=== PATIENT | female | born 1975 | race Caucasian/White ===

== ENCOUNTER 2023-01-03 08:20 | Outpatient (CLI) | payer BC, SELFPAY ==
--- NOTE | 2023-01-03 08:45 | CRLHL7_ITS ---
For Patients: As a result of the Century Cures Act, medical imaging exams and procedure reports are released immediately into your electronic medical record. You may view this report before your referring provider. If you have questions, please contact your health care provider. BILATERAL SCREENING MAMMOGRAM WITH COMPUTER-AIDED DETECTION AND TOMOSYNTHESIS TECHNIQUE: CC and MLO views were obtained. These mammographic images have been obtained using full-field digital technique. These mammographic images were interpreted with the benefit of computer-aided detection. Breast tomosynthesis was used in this interpretation. COMPARISON FILM: 05/10/16, 06/18/14, 12/15/10. FINDINGS: The breasts are heterogeneously dense, which may obscure small masses. IMPRESSION: There is no radiographic evidence for malignancy. ASSESSMENT: BI-RADS Category 1: Negative RECOMMENDATION: Routine screening mammogram in 1 year. A lay language report of this examination will be provided to the patient. MIC SPENCER M.D. Diagnostic Radiologist [email or web address] Transcribed: 01/03/2023, 6:[address]/Dictated by: Mic Spencer MD @ 01/03/2023 9:29:[address]/Dictated by: Mic Spencer MD @ 01/03/2023 9:29:00 AM (Electronically Signed)
== END 2023-01-03 08:21 | disposition home or self-care (01) ==
LOC: MAMMO 08:26
PROVIDERS: PCP Family Medicine; Visit Provider Family Medicine
DX: Z12.31 Encounter for screening mammogram for malignant neoplasm of breast (principal); R92.2 Inconclusive mammogram
CPT/HCPCS: 77063; 77067

== ENCOUNTER 2024-08-21 18:15 | Emergency (ER) | payer OTHER, SELFPAY ==
[2024-08-21] VITALS (13 sets, daily range): BP systolic 126–173; BP diastolic 85–102; PULSE 67–96; RESP 4–26; TEMP 37.2; O2SAT 97–99; BMI 25.4
--- OUTSIDE RECORDS SUMMARY | 2024-08-21 18:17 | XMS_ITS | Clinical Summary ---
Author Organization [facility] Address [address] [place] [id number] Care Team Providers Care Pigment Pumper Name Role Phone Pcp, No Primary Care Provider Unavailabl e Medications No known medications Social History Tobacco Use Types Packs/Day Years Used Date Smoking Tobacco: Never Alcohol Use Standard Drinks/Week Comments Not Asked 0 (1 standard drink = 0.6 oz pur e alcohol) Comments Unknown Sex and Gender Information Value Date Recorded Sex Assigned at Not on file Legal Sex Female 6:25 AM RESERVOIR CARETAKER Gender Identity Not on file Sexual Orientation Not on file Obstetrics History Last Filed Vital Signs Vital Sign Reading Time Taken Comments Blood Pressure 131/76 04/21/2010 3:25 PM RESERVOIR CARETAKER Pulse 81 04/21/2010 3:25 PM RESERVOIR CARETAKER Temperature - - Respiratory Rate - - Oxygen Saturation - - Inhaled Oxygen Concentration - - Weight 81.2 kg (179 lb 1.6 oz) 04/21/2010 3:25 P M RESERVOIR CARETAKER Height - - Body Mass Index - - Plan of Treatment Health Maintenance Due Date Last Done Comments Tdap 1984 Depression screening for age 12+ 1985 HIV for age 15-65 1988 BMI (ht and wt on same day) for age 18+ 11/30/1991 Hepatitis C screening for age 18-79 11/30/1991 Tetanus booster 1993 Pap test for age 21-65 1994 Colonoscopy through age 75 2018 Lipids for age 45-75 2018 Mammogram for age 45-75 2018 Pneumococcal series for age 50+ (1 of 1 - PCV) 024 Zoster (shingles) series for age 50+ (1 of 2) 11/30/19 24 COVID-19 vaccine series (2023- season) 4 Influenza Vaccine (Season Ended) 2025 Care Teams Pigment Pumper Relationship Specialty Start Date End Date Pcp, No . PCP - General 04/06/10
--- NOTE | 2024-08-21 18:35 | ED.GENADULT ---
HPI - General Adult General Time Seen by Provider: 18:35 Date Seen: 08/21/24 Chief complaint: Chest Pain Stated complaint: tightness in chest, difficulty breathing, dizzy Time Seen by Provider: 08/21/24 18:24 Source: patient, RN notes reviewed and old records reviewed Mode of arrival: ambulatory Limitations: no limitations History of Present Illness HPI narrative: 48-year-old female who presents today with multiple complaints. Patient notes 4-5 days of left-sided chest pain going into the left arm, she says this is constant, also some lightheadedness. No nausea vomiting, does not seem to be worse with activity. Also left-sided head pain and neck pain, and notes for episodes of left-sided facial droop accompanied by left arm weakness over the last 3 months most recently 2 weeks ago, each lasting about 5 minutes at a time. Related Data Previous Rx's ?Medication ?Instructions ?Recorded aspirin 81 mg tablet,delayed 81 mg PO DAILY #30 tabs 08/21/24 release atorvastatin 10 mg tablet 10 mg PO DAILY #30 tabs 08/21/24 Allergies Allergy/AdvReac Type Severity Reaction Status Date / Time coconut Allergy Intermediate Swelling Verified 08/21/24 19:26 of the Eye [facility] Social History Non-prescribed substance use: denies use Exam Narrative: Exam Narrative: General: Well-developed and well-nourished, no acute distress Head: Atraumatic and normocephalic Eyes: Pupils are equal reactive, extraocular motions intact, conjunctiva clear ENT: External nose and ears are normal, posterior pharynx without erythema or exudate Neck: No midline cervical tenderness, full spontaneous range of motion the neck, trachea midline, no adenopathy Heart: Regular rate and rhythm no murmurs or thrills Lungs: Clear to auscultation bilaterally without wheezes or crackles Abdomen: Soft, nontender, nondistended with active bowel sounds Musculoskeletal: No tenderness, deformity, or edema Neurologic: Awake, alert, and oriented x3, no gross focal neurologic deficits, cranial nerves intact as tested Psych: Mood and affect are appropriate Skin: No rashes Const: Vital Signs, click to edit/add: Vital Signs - 24 hr 08/21/24 18:33 08/21/24 19:04 08/21/24 19:05 Temperature 98.9 F Pulse Rate 72 77 Pulse Rate [Pulse Oximeter] 96 Respiratory Rate 16 7 L 21 Blood Pressure 152/92 H Blood Pressure [Ri ght Upper Arm] 173/102 H Pulse Oximetry 98 99 99 Oxygen Delivery Me thod Room Air 08/21/24 19:22 08/21/24 19:37 08/21/24 19:41 Temperature Pulse Rate 75 77 Pulse Rate [Pulse Oximeter] Respiratory Rate 4 L 26 H 7 L Blood Pressure 141/87 H 141/91 H Blood Pressure [Ri ght Upper Arm] Pulse Oximetry 97 99 Oxygen Delivery Me thod 08/21/24 20:00 08/21/24 20:01 08/21/24 20:23 Temperature Pulse Rate 72 69 70 Pulse Rate [Pulse Oximeter] Respiratory Rate 16 12 17 Blood Pressure 130/90 H 143/85 H Blood Pressure [Ri ght Upper Arm] Pulse Oximetry 97 98 98 Oxygen Delivery Me thod 08/21/24 20:30 08/21/24 20:43 08/21/24 21:00 Temperature Pulse Rate 74 73 67 Pulse Rate [Pulse Oximeter] Respiratory Rate 12 19 16 Blood Pressure 146/99 H Blood Pressure [Ri ght Upper Arm] Pulse Oximetry 98 99 97 Oxygen Delivery Me thod 08/21/24 21:02 Temperature Pulse Rate 69 Pulse Rate [Pulse Oximeter] Respiratory Rate 14 Blood Pressure 126/87 Blood Pressure [Ri ght Upper Arm] Pulse Oximetry 98 Oxygen Delivery Me thod Course Course ED Course: Reviewed EHR for [facility], patient's only prior encounter what is in 2011 with Podiatry. I do note that she has an upcoming appointment in 1 week in the primary care clinic. Patient seen and examined, presents with multiple complaints today. Chest pain which is been going on for the last 45 days, radiates into left arm, constant, not associated with activity. On exam here, finally stable, no tenderness to palpation, lungs are clear. Troponin and EKG are ordered. Additionally patient notes several episodes of left facial droop and left arm weakness over the last couple of months in the last couple of minutes at a time. The last of these was 2 weeks ago. No focal neurologic deficits on exam today. CTA of the head neck ordered to evaluate for dissection, vascular occlusion or stenosis. Aspirin given in the department. Reevaluation(s) Time of Reevaluation #1: 19:08 Reevaluation #1: EKG middle interpreted by me performed at 7:02 p.m. demonstrates sinus rhythm rate 75, no acute ST elevations or depressions, normal intervals, normal axis, QTC 426, no prior for comparison. Time of Reevaluation #2: 20:18 Reevaluation #2: Labs independently interpreted by me with normal CBC, normal basic panel of the mild hypokalemia, normal magnesium, negative BNP, negative D-dimer, normal troponin. Reviewed radiology interpretation CTA of the head and neck, negative for acute findings. CT scan of the head is negative. Discussed findings and plan with patient. She should certainly have further evaluation for possible TIA, in the meantime will be started on statin, aspirin. Stress test ordered for further evaluation of her chest pain. Stable for discharge otherwise. Time of Reevaluation #3: 21:51 Reevaluation #3: Repeat troponin is negative. Patient recheck, she is stable for discharge we discussed disposition, admission versus discharge for outpatient follow-up, patient is stable for outpatient Vital Signs Vital signs: Initial Vital Signs Temperature 98.9 F 08/21/24 18:33 Temperature Source Temporal Artery Scan 08/21/24 18:33 Pulse Rate 96 08/21/24 18:33 Respiratory Rate 16 08/21/24 18:33 Blood Pressure 173/102 H 08/21/24 18:33 Blood Pressure Mean 125 H 08/21/24 18:33 Pulse Oximetry 98 08/21/24 18:33 Oxygen Delivery Method Room Air 08/21/24 18:33 Vital Signs Temperature 98.9 F 08/21/24 18:33 Pulse Rate 96 08/21/24 18:33 Respiratory Rate 16 08/21/24 18:33 Blood Pressure 173/102 H 08/21/24 18:33 Pulse Oximetry 98 08/21/24 18:33 Oxygen Delivery Method Room Air 08/21/24 18:33 Temperature 98.9 F 08/21/24 18:33 Pulse Rate 69 08/21/24 21:02 Respiratory Rate 14 08/21/24 21:02 Blood Pressure 126/87 08/21/24 21:02 Pulse Oximetry 98 08/21/24 21:02 Oxygen Delivery Method Room Air 08/21/24 18:33 Medications Administered Medications: Discontinued Medications Generic Name Dose Route Start Last Admin Trade Name Freq PRN Reason Stop Dose Admin Aspirin 324 mg 08/21/24 20:24 08/21/24 20:36 Aspirin 81 Mg Tab.Chew PO 08/21/24 20:25 324 mg ONCE ONE Administration Medical Decision Making Lab Data Labs: Lab Results 08/21/24 08/21/24 08/21/24 Range/Units 19:00 19:10 21:00 WBC 9.13 (4.50-11.00) K/uL RBC 4.72 (4.00-5.20) m/uL Hgb 13.9 (12.0-16.0) gm/dL Hct 40.4 (33.0-51.0) % MCV 86 (80-100) fL MCH 29 (26-34) pg MCHC 34 (32-36) gm/dL RDW Coeff of Jean Claude 11.8 (11.5-15.5) % Plt Count 253 (140-440) K/uL Neut % (Auto) 64.4 (42.0-72.0) % Lymph % (Auto) 27.6 (20-44) % [place] % (Auto) 6.5 (0.0-11.0) % Eos % (Auto) 1.3 (0.0-7.0) % Baso % (Auto) 0.1 (0.0-3.0) % Neut # (Auto) 5.88 (1.7-7.0) K/uL Lymph # (Auto) 2.52 (0.90-2.90) K/uL [place] # (Auto) 0.60 (0.00-0.90) K/UL Eos # (Auto) 0.12 (0.00-0.50) K/uL Baso # (Auto) 0.01 (0.00-0.30) K/uL Abs Immat Gran (auto) 0.01 (0.00-0.30) K/uL Imm/Tot Granulo (auto) 0.1 % D-Dimer Quant (PE/DVT) 0.28 (0.00-0.50) ug/ml Sodium 139 (135-149) mmol/L Potassium 3.3 L (3.6-5.1) mmol/L Chloride 103 (96-114) mmol/L Carbon Dioxide 26 (20-32) mmol/L Anion Gap 10 (7-15) mEq/L BUN 12 (7-30) mg/dL Creatinine 0.6 (0.5-1.5) mg/dL Estimated Creat Clear 113.16 Estimated GFR 109 ml/min Glucose 113 (60-115) mg/dL Calcium 9.6 (8.4-10.6) mg/dL Magnesium 2.0 (1.5-2.6) mg/dL NT-Pro-B Natriuret Pep 83 pg/mL POC Troponin I 0.00 L 0.00 L (0.01-0.04) ng/ml Discharge Plan Discharge Clinical Impression: Chest pain, Stroke-like episode Patient Disposition: Home, Self-Care Condition: Stable Instructions: Chest Pain (DC) Additional Instructions: Your heart tracing and blood test today do not show any evidence for heart attack or heart damage. The hospital will call you tomorrow to schedule a stress test to evaluate for early blockages in the heart. Your CT scan of the head does not demonstrate any sign of stroke, bleeding, or blockages in the vessels. Your symptoms of facial droop and left arm numbness are concerning for possible TIA or moravian right blockages in vessels in the brain. You will be started on a baby aspirin daily as well as a low-dose of a cholesterol medicine for prevention of future episodes. You should follow-up with your primary care doctor as soon as possible for further evaluation. Activity Level: No Restrictions Discharge Diet: Regular Prescriptions: New aspirin 81 mg tablet,delayed release (DR/EC) 81 mg PO DAILY Qty: 30 0RF atorvastatin 10 mg tablet 10 mg PO DAILY Qty: 30 0RF Follow Up/Referrals: Magnus Zapien MD [Primary Care Provider] - Stand Alone Forms: Click With Me Now Info Instructions
--- NOTE | 2024-08-21 18:50 | CRLHL7_ITS ---
For Patients: As a result of the Century Cures Act, medical imaging exams and procedure reports are released immediately into your electronic medical record. You may view this report before your referring provider. If you have questions, please contact your health care provider. CLINICAL HISTORY: Headache and intermittent left upper extremity numbness and weakness. TECHNIQUE: Standard helical CT image acquisition through the head following the administration of intravenous contrast was performed. 3D and MIP reconstructions were performed at a separate workstation and permanently archived. COMPARISON: None available. FINDINGS: No intracranial proximal large vessel occlusion or flow-limiting luminal stenosis. No evidence of cerebral aneurysm. No findings to suggest an arterial-venous shunting lesion. The major dural venous sinuses and deep venous system are patent. IMPRESSION: No intracranial proximal large vessel occlusion, flow-limiting luminal stenosis, or cerebral aneurysm. Please note that all CT scans at this facility use dose modulation, iterative reconstruction, and/or weight-based dosing when appropriate to reduce radiation dose to as low as reasonably achievable. Dictated by Andrzej Cortes MD @ 08/22/2024 3:43:33 PM (Electronically Signed)
--- NOTE | 2024-08-21 18:50 | CRLHL7_ITS ---
For Patients: As a result of the Century Cures Act, medical imaging exams and procedure reports are released immediately into your electronic medical record. You may view this report before your referring provider. If you have questions, please contact your health care provider. CLINICAL HISTORY: Headaches; intermittent left upper extremity numbness and weakness. TECHNIQUE: Standard helical CT image acquisition through the neck was performed after intravenous contrast bolus enhancement. 3D and MIP reconstructions were performed at a separate workstation and permanently archived. COMPARISON: None available. FINDINGS: The origins of the great vessels from the aortic arch are patent. The common carotid arteries are patent. No significant luminal stenoses of the proximal ICAs by NASCET criteria. The more distal cervical segments of the ICAs are patent. The origins and cervical segments of the vertebral arteries are patent. IMPRESSION: Patent cervical arterial vasculature without hemodynamically significant luminal stenosis. Please note that all CT scans at this facility use dose modulation, iterative reconstruction, and/or weight-based dosing when appropriate to reduce radiation dose to as low as reasonably achievable. Dictated by Andrzej Cortes MD @ 08/22/2024 3:41:37 PM (Electronically Signed)
--- NOTE | 2024-08-21 18:56 | CRLHL7_ITS ---
For Patients: As a result of the Century Cures Act, medical imaging exams and procedure reports are released immediately into your electronic medical record. You may view this report before your referring provider. If you have questions, please contact your health care provider. INDICATION: Headaches, intermittent left facial droop and upper extremity paresthesias. TECHNIQUE: Noncontrast CT of the head with multiplanar reconstruction utilizing bone and soft tissue algorithms. COMPARISON: CT head dated 02/16/2010. FINDINGS: No acute intracranial hemorrhage. The higgins-white matter interface is preserved. The ventricles are normal in size. No abnormal extra-axial fluid collection is identified. Normal calvarium and skull base. Unremarkable orbits. The imaged paranasal sinuses and mastoid air cells are clear. IMPRESSION: No acute intracranial abnormality. Please note that all CT scans at this facility use dose modulation, iterative reconstruction, and/or weight-based dosing when appropriate to reduce radiation dose to as low as reasonably achievable. Dictated by Eddie Armenta MD @ 08/21/2024 8:02:53 PM (Electronically Signed)
[2024-08-21 19:25] LABS: Basophils Absolute Auto 0.01 K/uL (0.00-0.30); Basophils Percent Auto 0.1 % (0.0-3.0); Eosinophils Absolute Auto 0.12 K/uL (0.00-0.50); Eosinophils Percent Auto 1.3 % (0.0-7.0); Hematocrit 40.4 % (33.0-51.0); Hemoglobin* 13.9 gm/dL (12.0-16.0); Immature Granulocytes Abs Auto 0.01 K/uL (0.00-0.30); Immature Granulocytes Pct Auto 0.1 %; Lymphocytes Absolute Auto 2.52 K/uL (0.90-2.90); Lymphocytes Percent Auto 27.6 % (20-44); Mean Corpuscular HGB Conc 34 gm/dL (32-36); Mean Corpuscular Hemoglobin 29 pg (26-34); Mean Corpuscular Volume 86 fL (80-100); Monocytes Percent Auto 6.5 % (0.0-11.0); Neutrophils Absolute Auto 5.88 K/uL (1.7-7.0); Neutrophils Percent Auto 64.4 % (42.0-72.0); Platelet Count* 253 K/uL (140-440); RDW Coefficient of Variation % 11.8 % (11.5-15.5); Red Blood Count 4.72 m/uL (4.00-5.20); White Blood Count* 9.13 K/uL (4.50-11.00)
[2024-08-21 19:27] LABS: Chloride* 103 mmol/L (96-114); Potassium* 3.3 mmol/L (3.6-5.1); Sodium* 139 mmol/L (135-149)
[2024-08-21 19:30] LABS: Anion Gap 10 mEq/L (7-15); Blood Urea Nitrogen* 12 mg/dL (7-30); Calcium* 9.6 mg/dL (8.4-10.6); Carbon Dioxide* 26 mmol/L (20-32); Creatinine* 0.6 mg/dL (0.5-1.5); Est. Creatinine Clearance* 113.16; Estimated Glomerular Filt Rate 109 ml/min; Glucose* 113 mg/dL (60-115)
[2024-08-21 19:32] LABS: Slide Review Reflex No
[2024-08-21 19:40] LABS: NT Pro B Type NatriureticPept* 83 pg/mL
[2024-08-21 19:52] LABS: D Dimer Quantitative* 0.28 ug/ml (0.00-0.50)
--- OUTSIDE RECORDS SUMMARY | 2024-08-21 20:13 | XMS_ITS | Clinical Summary ---
Author Organization [facility] Address [address] [place] [id number] Care Team Providers Care Script Manager Name Role Phone Pcp, No Primary Care Provider Unavailabl e Medications No known medications Social History Tobacco Use Types Packs/Day Years Used Date Smoking Tobacco: Never Alcohol Use Standard Drinks/Week Comments Not Asked 0 (1 standard drink = 0.6 oz pur e alcohol) Comments Unknown Sex and Gender Information Value Date Recorded Sex Assigned at Not on file Legal Sex Female 6:25 AM SCIENTIFIC DIVER Gender Identity Not on file Sexual Orientation Not on file Obstetrics History Last Filed Vital Signs Vital Sign Reading Time Taken Comments Blood Pressure 131/76 04/21/2010 3:25 PM SCIENTIFIC DIVER Pulse 81 04/21/2010 3:25 PM SCIENTIFIC DIVER Temperature - - Respiratory Rate - - Oxygen Saturation - - Inhaled Oxygen Concentration - - Weight 81.2 kg (179 lb 1.6 oz) 04/21/2010 3:25 P M SCIENTIFIC DIVER Height - - Body Mass Index - [...] Influenza Vaccine (Season Ended) 2025 Care Teams Script Manager Relationship Specialty Start Date End Date Pcp, No . PCP - General 04/06/10
[2024-08-21] MEDS: ASPIRIN 81 MG TAB.CHEW 324 MG PO (20:36)
== END 2024-08-21 22:00 | disposition home or self-care (01) ==
PROVIDERS: Emergency Provider Family Medicine; PCP Family Medicine
DX: R07.9 Chest pain, unspecified (principal); R42 Dizziness and giddiness; R53.1 Weakness
CPT/HCPCS: 36415; 70450; 70496; 70498; 80048; 83735; 83880; 84484; 85025; 85379; 93005; 99284; 99285; A9270; Q9967

== ENCOUNTER 2024-08-27 09:28 | Outpatient (CLI) | payer OTHER, SELFPAY | END 2024-08-27 09:29 | disposition home or self-care (01) | LOC: LKVREF 09:29 | PROVIDERS: PCP Family Medicine; Visit Provider Family Medicine | DX: Z13.6 Encounter for screening for cardiovascular disorders (principal) | CPT/HCPCS: 80061 ==

== ENCOUNTER 2024-08-28 13:38 | Outpatient (CLI) | payer OTHER, SELFPAY ==
[2024-08-28 14:55] VITALS: BP 158/82; PULSE 105; RESP 16
--- NOTE | 2024-08-28 15:02 | W.PM.STED ---
Stress Test Note Date Date Seen: 08/28/24 Date of test: 08/28/24 Providers Referring provider: Carl Daly Primary care provider: Magnus Zapien Stress test physician: Flori Lee Stress Test Note Stress test ordered: Stress Echo Indication for test: Chest pain Stress test medicine: None Results discussion: Resting EKG: Sinus rhythm, 86 beats per minute. Resting blood pressure: 146/91 Stress test: Patient is consented on the ordered stress test stress echo and agrees to proceed. Standard Dante protocol for treadmill is followed. Patient exercised to 9 minutes 20 seconds, needing to stop on the treadmill became too fast. This was equivalent to 10.7 Mets. She had a maximum heart rate of 163 beats per minute which was 112% of a calculated target heart rate of 145. She had rate pressure product near 28,480. Patient had no symptoms, certainly no chest pain, no arrhythmia noted. There was no diagnostic EKG changes of any ischemia. Await echo images to couple this for a full formal diagnostic. Impression: Subjectively negative, objectively negative EKG portion of this stress test. Follow up suggested: Patient is discharged home in stable condition. Will await echo images to couple this for a full formal diagnostic. She has already talked to her primary provider about plans for getting results from this test.
== END 2024-08-28 13:39 | disposition home or self-care (01) ==
LOC: STRESS 13:39
PROVIDERS: PCP Family Medicine; Visit Provider Family Medicine
DX: R07.9 Chest pain, unspecified (principal)
CPT/HCPCS: 93016; 93325; 93351

== ENCOUNTER 2024-09-10 07:31 | Outpatient (CLI) | payer OTHER, SELFPAY ==
--- NOTE | 2024-09-10 07:45 | CRLHL7_ITS ---
For Patients: As a result of the Century Cures Act, medical imaging exams and procedure reports are released immediately into your electronic medical record. You may view this report before your referring provider. If you have questions, please contact your health care provider. BILATERAL DIGITAL SCREENING MAMMOGRAM WITH COMPUTER-AIDED DETECTION AND TOMOSYNTHESIS CLINICAL HISTORY: Routine screening exam. COMPARISON: 01/03/23, 05/10/16, 06/18/14 TECHNIQUE: Digital mammogram in CC and MLO projections including computer-aided detection (CAD). Tomosynthesis was used in this interpretation. BREAST COMPOSITION: There are scattered areas of fibroglandular density. FINDINGS: RIGHT Breast: Focal asymmetric density upper outer quadrant 10 cm from the nipple. LEFT Breast: No suspicious findings. IMPRESSION: RIGHT breast asymmetry/mass. RECOMMENDATIONS: Additional mammographic views of the RIGHT breast including 3D spot compression CC/MLO. RIGHT breast ultrasound may also be required. The [facility] will contact the patient. A lay language report of this examination will be provided to the patient. BI-RADS Category 0: Incomplete: Need Additional Imaging Evaluation Dictated by Mic Ronquillo MD @ 09/11/2024 10:37:21 AM Dictated by: Mic Ronquillo MD @ 09/11/2024 10:37:30 (Electronically Signed)
== END 2024-09-10 07:32 | disposition home or self-care (01) ==
LOC: MAMMO 07:32
PROVIDERS: PCP Family Medicine; Visit Provider Family Medicine
DX: Z12.31 Encounter for screening mammogram for malignant neoplasm of breast (principal); N63.10 Unspecified lump in the right breast, unspecified quadrant
CPT/HCPCS: 77063; 77067

== ENCOUNTER 2024-09-24 15:34 | Outpatient (CLI) | payer OTHER, SELFPAY ==
[2024-09-26 22:47] LABS: HPV Source Cervical; HPV, High Risk by TMA Not Detected
== END 2024-09-24 15:35 | disposition home or self-care (01) ==
PROVIDERS: PCP Family Medicine; Visit Provider Obstetrics & Gynecology
DX: Z12.4 Encounter for screening for malignant neoplasm of cervix (principal); Z11.51 Encounter for screening for human papillomavirus (HPV)
CPT/HCPCS: 87624; 87625; 88141; 88142

== ENCOUNTER 2024-09-26 07:29 | Outpatient (CLI) | payer OTHER, SELFPAY ==
--- NOTE | 2024-09-26 07:45 | CRLHL7_ITS ---
For Patients: As a result of the Cures Act, medical imaging exams and procedure reports are released immediately into your electronic medical record. You may view this report before your referring provider. If you have questions, please contact your health care provider. DIGITAL DIAGNOSTIC RIGHT MAMMOGRAM USING TOMOSYNTHESIS AND COMPUTER-AIDED DETECTION RIGHT BREAST ULTRASOUND CLINICAL HISTORY: RIGHT breast mass/asymmetry. COMPARISON: 09/10/2024, 01/03/2023, 05/10/2016. TECHNIQUE: Digital RIGHT mammogram in two projections. Tomosynthesis and CAD were used in this interpretation. Real-time ultrasound imaging of RIGHT breast with imaging documentation. Scanning was performed by both the technologist and the radiologist. BREAST COMPOSITION: There are scattered areas of fibroglandular density. FINDINGS: 3D spot compression CC/MLO RIGHT breast mammogram images submitted. Decreased conspicuity of previously noted asymmetric density. No architectural distortion. No suspicious calcifications. Targeted RIGHT breast ultrasound performed in the upper outer quadrant, including 10 o`clock 9 cm from the nipple. Normal fibroglandular tissue is present. No shadowing lesion or fibrocystic change. IMPRESSION: No suspicious findings. No evidence of malignancy. RECOMMENDATIONS: Routine screening mammography. A lay language report of this examination will be provided to the patient. BI-RADS Category 2: Benign Dictated by Mic Ronquillo MD @ 09/26/2024 8:47:03 AM jj/Dictated by: Mic Ronquillo MD @ 09/26/2024 8:46:00 AM (Electronically Signed)
--- NOTE | 2024-09-26 08:15 | CRLHL7_ITS ---
For Patients: As a result of the Cures Act, medical imaging exams and procedure reports are released immediately into your electronic medical record. You may view this report before your referring provider. If you have questions, please contact your health care provider. SEE DIGITAL DIAGNOSTIC RIGHT MAMMOGRAM PERFORMED SAME DAY CRL:edy snow/Dictated by: Mic Ronquillo MD @ 09/26/2024 8:47:00 AM (Electronically Signed)
== END 2024-09-26 07:30 | disposition home or self-care (01) ==
LOC: MAMMO 07:29
PROVIDERS: PCP Family Medicine; Visit Provider Family Medicine
DX: N63.10 Unspecified lump in the right breast, unspecified quadrant (principal); R92.8 Other abnormal and inconclusive findings on diagnostic imaging of breast
CPT/HCPCS: 76642; 77065; G0279

== ENCOUNTER 2025-01-29 15:19 | Outpatient (CLI) | payer OTHER, SELFPAY | END 2025-01-29 15:20 | disposition home or self-care (01) | PROVIDERS: PCP Family Medicine; Visit Provider Family Medicine | DX: R51.9 Headache, unspecified (principal); I10 Essential (primary) hypertension; E78.5 Hyperlipidemia, unspecified | CPT/HCPCS: 84443; 86140 ==